=== PATIENT | male | born 1980 ===

== ENCOUNTER 2017-11-10 22:17 | Emergency (ER) | payer MEDICAID ==
[2017-11-10 23:50] VITALS: BP 150/94; PULSE 50; RESP 20; TEMP 98.1; O2SAT 99
--- NOTE | 2017-11-11 01:01 | C.PDOC ---
History Of Present Illness 37yo male, presents to ER with complaints of pain to his right upper tooth for the past 3 days. Patient states has not been evaluated by a dentist in years. He denies any fever, chills, and offers no other medical complaints. Time Seen by Provider: 11/10/17 23:56 Chief Complaint (Nursing): Dental Pain History Per: Patient History/Exam Limitations: no limitations Onset/Duration Of Symptoms: Days (3) Current Symptoms Are (Timing): Still Present Past Medical History Reviewed: Historical Data, Nursing Documentation, Vital Signs Vital Signs: Last Vital Signs Temp 98.1 F 11/10/17 23:46 Pulse 50 L 11/10/17 23:46 Resp 20 11/10/17 23:46 BP 150/94 H 11/10/17 23:46 Pulse Ox 99 11/11/17 12:34 - Medical History PMH: No Chronic Diseases Surgical History: No Surg Hx Family History: States: No Known Family Hx - Social History Hx Alcohol Use: Yes Hx Substance Use: No Review Of Systems Except As Marked, All Systems Reviewed And Found Negative. Constitutional: Negative for: Fever, Chills ENT: Positive for: Other (dental pain) Physical Exam - Physical Exam Appears: Non-toxic, No Acute Distress Skin: Normal Color Head: Atraumatic, Normacephalic, No Other (facial swelling) Eye(s): bilateral: Normal Inspection, PERRL Oral Mucosa: Moist Teeth: Caries, Tender To Palpation (right upper posterior molar) Gingiva: Swelling (minimal, posterior), Tender (tenderness to area around right upper psoterior molar), No Abscess Throat: Normal, No Erythema Neck: Normal ROM, Supple Chest: Symmetrical Cardiovascular: Rhythm Regular Respiratory: Normal Breath Sounds Neurological/Psych: Oriented x3 ED Course And Treatment O2 Sat by Pulse Oximetry: 99 (RA) Pulse Ox Interpretation: Normal Progress Note: Patient given Motrin 800mg PO and first dose of antibiotics. Patient to be discharged home with course of Jose Miguel-VK and Motrin, instructed to follow up with dentist without fail. Disposition Counseled Patient/Family Regarding: Diagnosis, Need For Followup, Rx Given - Disposition Referrals: DENTAL CLINIC, DENTIST [Other] Disposition: HOME/ ROUTINE Disposition Time: 00:59 Condition: STABLE Additional Instructions: PLEASE FOLLOW UP WITH A DENTIST MAY FOLLOW UP AT [facility] IN [place] - DENTAL CLINIC RETURN TO ER IF WORSE Prescriptions: Ibuprofen [Motrin Tab] 800 mg PO QID #20 tab Penicillin VK [Pen-Vee K] 2 tab PO BID #28 tab Instructions: Tooth Decay, Adult (DC) Forms: [employer] [facility] (Greenlandic) - Clinical Impression Clinical Impression: Dental caries - PA / FILTROSE CRUSHER / Resident Statement MD/DO has reviewed & agrees with the documentation as recorded. - Scribe Statement The provider has reviewed the documentation as recorded by the Scribe (Ann Hernandez) Provider Attestation: All medical record entries made by the Scribe were at my direction and personally dictated by me. I have reviewed the chart and agree that the record accurately reflects my personal performance of the history, physical exam, medical decision making, and the department course for this patient. I have also personally directed, reviewed, and agree with the discharge instructions and disposition.
== END 2017-11-11 01:06 | disposition home or self-care (01) ==
LOC: C.ER 22:17
DX: K02.9 Dental caries, unspecified (principal)